=== PATIENT | female | born 1955 | race Caucasian/White ===

== ENCOUNTER → 2016-12-11 | Outpatient (CLI) | payer BC ==
--- NOTE | 2016-12-11 13:56 | MAMMOGRAPHY REPORT ---
BILATERAL DIGITAL SCREENING MAMMOGRAM WITH CAD: 12/11/2016 CLINICAL HISTORY: Routine screening. Patient has no complaints. TECHNIQUE: Bilateral CC, MLO and repeat MLO views for visualization of the axillary tail were Obtaine d. Current study was also evaluated with a Computer Aided Detection (CAD) system. COMPARISON: Comparison is made to exams dated: 12/08/2015 mammogram, 11/30/2014 mammogram, 05/26/2013 ma mmogram, 05/20/2012 mammogram, 04/04/2011 mammogram, and 03/24/2010 mammogram - [facility]. BREAST COMPOSITION: The tissue of both breasts is almost entirely fatty. FINDINGS: There are stable groupings of benign-appearing round and punctate microcalcifications scatt ered bilaterally. No suspicious mass, architectural distortion or cluster of new, suspicious microca lcifications is seen. IMPRESSION: ACR BI-RADS CATEGORY 1: NEGATIVE There is no mammographic evidence of malignancy. A 1 year screening mammogram is recommended. The pa tient will receive written notification of the results. Approximately 10% of breast cancers are not detected with mammography. A negative mammographic report should not delay biopsy if a clinically suggestive mass is present. Rosie Fonseca M.D. ay/:12/11/2016 09:12:14 Plating Equipment Tender: Yojana Barrios, [facility] letter sent: Normal 1/2 BI-RADS Code: ACR BI-RADS Category 1: Negative
== END | disposition home or self-care (01) ==
LOC: C.MAMM 08:12
PROVIDERS: ATTEND Internal Medicine
DX: Z12.31 Encounter for screening mammogram for malignant neoplasm of breast (principal)

== ENCOUNTER → 2017-01-15 | Outpatient (CLI) | payer BC ==
--- NOTE | 2017-01-15 12:08 | DIAGNOSTIC IMAGING REPORT ---
CHEST 2 VIEWS ROUTINE CLINICAL HISTORY: R06.00 Dyspnea dyspnea COMPARISON STUDY: No previous studies for comparison. FINDINGS: Subsegmental atelectasis medial aspect right base versus atypical pericardial cyst. Mild cardiomegaly. Lungs are clear. Diaphragms smooth. IMPRESSION: Subsegmental atelectasis medial right base versus pericardial cyst. Mild cardiomegaly. The above report was generated using voice recognition software. It may contain grammatical, syntax or spelling errors. Electronically signed by: Kd Bolanos M.D. 01/15/2017 12:07 PM Dictated Date/Time: 01/15/2017 12:06 PM
== END | disposition home or self-care (01) ==
LOC: C.RADBC 11:52
PROVIDERS: ATTEND Physician Assistant
DX: R06.00 Dyspnea, unspecified (principal); R91.8 Other nonspecific abnormal finding of lung field

== ENCOUNTER → 2017-06-20 | Outpatient (CLI) | payer OTHER ==
--- NOTE | 2017-06-20 12:11 | DIAGNOSTIC IMAGING REPORT ---
CHEST 2 VIEWS ROUTINE CLINICAL HISTORY: 61 years-old Female presenting with J20.9 Acute bronchitis with [id number]. TECHNIQUE: PA and lateral views of the chest were obtained. COMPARISON: 01/15/2017. FINDINGS: Cardiomediastinal silhouette normal. Lungs and pleural spaces clear. Degenerative changes of the thoracic spine. Upper abdomen normal. IMPRESSION: 1. No acute cardiopulmonary disease. Electronically signed by: Sammy Gallo M.D. 06/20/2017 12:10 PM Dictated Date/Time: 06/20/2017 12:09 PM
== END | disposition home or self-care (01) ==
LOC: C.RADBC 11:51
PROVIDERS: ATTEND Nurse Practitioner Adult Health
DX: J20.9 Acute bronchitis, unspecified (principal)

== ENCOUNTER → 2017-12-12 | Outpatient (CLI) | payer OTHER ==
--- NOTE | 2017-12-12 15:12 | MAMMOGRAPHY REPORT ---
BILATERAL DIGITAL SCREENING MAMMOGRAM TOMOSYNTHESIS WITH CAD: 12/12/2017 CLINICAL HISTORY: Routine screening. Patient has no complaints. TECHNIQUE: The study was acquired using full field digital technology and interpreted from soft copy. Breast tomosynthesis in addition to standard 2D mammography was performed. Current study was also ev aluated with a Computer Aided Detection (CAD) system. COMPARISON: Comparison is made to exams dated: 12/11/2016 mammogram, 12/08/2015 mammogram, 11/30/2014 mal[place] mogram, 05/26/2013 mammogram, 05/20/2012 mammogram, and 04/04/2011 mammogram - [facility]ter. BREAST COMPOSITION: The tissue of both breasts is almost entirely fatty. FINDINGS: No suspicious masses, calcifications, or areas of architectural distortion are noted in either breast . There has been no significant interval change compared to prior exams. Bilateral benign-appearing calcifications are not significantly changed. IMPRESSION: ACR BI-RADS CATEGORY 2: BENIGN There is no mammographic evidence of malignancy. A 1 year screening mammogram is recommended.( [id number]) The patient will receive written notification of the results. Some breast cancers are not detected with mammography. A negative mammographic report should not wander y biopsy if a clinically suggestive mass is present. Shahnaz Simon M.D. ah/:12/12/2017 08:55:04 Political Cartoonist: Jaycee Rosario RT(R)(M), [facility] letter sent: Normal 1/2 BI-RADS Code: ACR BI-RADS Category 2: Benign
== END | disposition home or self-care (01) ==
LOC: C.MAMM 08:07
PROVIDERS: ATTEND Internal Medicine
DX: Z12.31 Encounter for screening mammogram for malignant neoplasm of breast (principal)